=== PATIENT | male | born 1965 | race Caucasian/White ===

== ENCOUNTER 2020-12-09 08:50 | Emergency (ER) | payer MEDICARE, MEDICAID ==
[~2020-12-09] VITALS: Ht 170.2 cm; Wt 60.0 kg
[~2020-12-09 08:50] MED LIST: ASCO-339 PO; ATEN-42 MT; CLON0.5T23 MT; DIPH25TA26 PO; DOCU250C69 MT; FERR325T6 PO; HYDR453.4 TOP; MULT-1146 MT; OLAN20TA34 PO; PANT40TA51 MT; POLY250017 MT; SERT50TA12 MT; SUCR1TAB PO
[2020-12-09] MEDS ORDERED: FAMO-135 MT (09:13)
[2020-12-09] MEDS ORDERED: P50 MT (09:13)
[2020-12-09] MEDS ORDERED: DIPH25CA83 MT (09:13)
[2020-12-09] MEDS ORDERED: PREDNISONE 20MG TABLET PO ONE (09:15)
[2020-12-09] MEDS ORDERED: FAMOTIDINE 20MG TABLET PO ONE (09:15)
[2020-12-09] MEDS ORDERED: DIPHENHYDRAMINE 25MG CAPSULE PO ONE (09:15)
[2020-12-09 09:55] VITALS: BP 136/78
== END 2020-12-09 10:37 | disposition home or self-care (01) ==
LOC: ER 08:50
DX: L50.9 Urticaria, unspecified (principal); I10 Essential (primary) hypertension; Z79.899 Other long term (current) drug therapy; Z98.890 Other specified postprocedural states
CPT/HCPCS: 99284; J7512; Q0163

== ENCOUNTER → 2021-08-28 | Day surgery (SDC) | payer MEDICARE, MEDICAID ==
[~2021-08-28] VITALS: Ht 149.9 cm; Wt 56.7 kg
[~2021-08-28] MED LIST changes: +DEXAMETHASONE 4MG/ML 1ML VIAL ONE; +DIPH25CA83 MT; +FAMO-135 MT; +LACTATED RINGERS 1,000 ML IV SCH; +LIDOCAINE HCL 1% 20ML VIAL (Pyxis) INJ ONE; +ONDANSETRON HCL 4MG/2ML INJ ONE; +P50 MT; +POLY119P3 PO; +PROPOFOL 200MG/20ML VIAL IV ONE; +SERT-422 MT; -SERT50TA12 MT
[2021-08-28 09:15] LABS: BASOPHILS % 0.6 % (0.0-2.0); EOSINOPHILS % 1.1 % (0.0-5.0); HEMATOCRIT. 43.2 % (42.0-52.0); HEMOGLOBIN. 14.6 g/dL (14.0-18.0); LYMPHOCYTES % 34.2 % (20.0-50.0); MEAN CORPUSCULAR VOLUME 85.7 fL (80.0-94.0); MEAN PLATELET VOLUME 7.4 fl (7.4-10.4); MONOCYTES % 8.3 % (2.0-8.0); NEUTROPHILS % 55.8 % (40.0-76.0); PLATELET 261 x1000/uL (130-400); RED BLOOD CELL COUNT 5.05 mill/uL (4.7-6.1); RED CELL DISTRIBUTION WIDTH 13.7 % (11.6-14.6)
[2021-08-28 09:21] LABS: CHLORIDE 115 mEq/L (98-107)
== END | disposition home or self-care (01) ==
LOC: OR 08:28
PROVIDERS: ATTEND Internal Medicine Gastroenterology
DX: K21.00 Gastro-esophageal reflux disease with esophagitis, without bleeding (principal); D64.9 Anemia, unspecified; K44.9 Diaphragmatic hernia without obstruction or gangrene; K29.50 Unspecified chronic gastritis without bleeding; K64.8 Other hemorrhoids; K31.89 Other diseases of stomach and duodenum; I10 Essential (primary) hypertension; R62.50 Unspecified lack of expected normal physiological development in childhood; Z79.899 Other long term (current) drug therapy; Z98.890 Other specified postprocedural states; Z20.822 Contact with and (suspected) exposure to COVID-19
CPT/HCPCS: 36415; 43239; 80048; 85025; 87426; 88305; 93005; J1100; J2405; J2704; J3490